=== PATIENT | male | born 1955 | race Caucasian/White ===

== ENCOUNTER 2016-11-09 10:36 | Observation (INO) ==
[2016-11-09] MEDS ORDERED: NS 1,000 ML IV ONE (11:08)
[2016-11-09] MEDS ORDERED: ZOFRAN IV ONE (11:12)
[2016-11-09] MEDS ORDERED: FLEXERIL PO ONE (11:12)
[2016-11-09] MEDS ORDERED: MORPHINE IV ONE (11:12)
--- NOTE | 2016-11-09 12:22 | Diag Imaging Result Doc PS360 ---
EXAM: RIGHT KNEE COMPLETE, THREE VIEWS HISTORY: Pain and swelling after falling TECHNIQUE: COMPARISON: None. FINDINGS: There is a comminuted fracture with multiple fracture lines through the proximal tibia. The lateral tibial plateau is depressed at least a centimeter from its normal location. There are fragments lateral to the lateral tibial plateau from the proximal fibula. This is displaced over a centimeter. No fracture to the distal femur. IMPRESSION: Comminuted compressed fracture to the proximal lateral tibia with a fracture to the fibula as well. Electronically signed by Yohannes Muñoz 11/09/2016 12:19 PM
--- NOTE | 2016-11-09 12:23 | Diag Imaging Result Doc PS360 ---
EXAM: LOWER LEG-RIGHT HISTORY: injury to rt lower leg TECHNIQUE: Three views COMPARISON: None. FINDINGS: Comminuted fracture to the proximal tibia is again demonstrated. This involves the lateral tibial plateau with compression and lateral displacement. The proximal fibula is also fractured and displaced. No fracture to the mid and distal tibia and fibula. IMPRESSION: Fractures to the proximal tibia and fibula. Electronically signed by Yohannes Muñoz 11/09/2016 12:20 PM
[2016-11-09 12:24] LABS: INR 1.37; PROTIME 14.7 Seconds (9.2-11.7); PTT 29.9 Seconds (22.0-36.0)
--- NOTE | 2016-11-09 12:25 | Diag Imaging Result Doc PS360 ---
HEAD/C-SPINE W/O CONTRAST - 11/09/2016 INDICATION: fall on coumadin TECHNIQUE: A CT dose reduction protocol was used. COMPARISON: 12/20/2015 FINDINGS: Head CT: The ventricles and sulci are normal in size and contour. No intracranial mass or hemorrhage. There is some stable minimal periventricular white matter chronic microvascular disease. No skull fractures visible. There is some frothy fluid in both maxillary sinuses. Cervical spine: Alignment is anatomic. Vertebral body heights and intervertebral disc spaces are preserved. There are some mild multilevel degenerative osteophytes globally throughout the cervical spine. No fracture or subluxation. No central canal or neural foraminal stenosis. There is COPD in the lung apices. IMPRESSION: 1. Frothy fluid in the maxillary sinuses. Otherwise no acute injury to the head. 2. Mild cervical spondylosis but no acute injury. Electronically signed by Med Melendrez 11/09/2016 12:23 PM
--- NOTE | 2016-11-09 14:06 | PROVIDER DOCUMENTATION ---
This chart was entered by Manny Yun Scribe, acting as scribe for Ruma Alberto MD. HPI-Musculoskeletal Pain/Inj - GENERAL Chief Complaint: Extremity Injury Stated Complaint: RT LEG INJURY Time Seen by Provider: 11/09/16 11:06 Source: patient Unable to obtain history due to:: urgency - HX OF PRESENT ILLNESS-MUSKULOSKELTAL Nature of Presenting Problem: Patient is a 61 y/o M that present to the ER with right lower leg injury. patient was at home in his shed when he was looking for something to help with pump spraying his yard. He was balancing on the leg of the couch when his leg slipped and fell between couch and boxes. He was unable to get up and bare weight due to pain. Patient reports hitting his head but didn't have loc. He is on coumadin due to previous blood clots. Denies neck or back pain Quality of Pain: reports: dull, throbbing Severity in ED: moderate, severe Onset/Duration: abrupt, just prior to arrival Timing: still present, constant Modifying Factors: worse with: movement, palpation Locality of Occurance: Home Similar Symptoms Previously?: No Recently seen or treated by another doctor?: No - FALL INJURY Location of Pain/Injury: reports: head, lower extremity (right lower leg proximal to knee) Reason for Fall: reports: lost balance Symptoms prior to fall:: reports: none Loss of Consciousness: no loss of consciousness Injury Associated Symptoms: reports: joint pain, snap/crack/pop sensation, unable to bear weight. denies: back/neck pain, chest pain, dizziness, headaches , puncture wound Review of Systems - Adult - REVIEW OF SYSTEMS - ADULT Constitutional: denies: chills, fever Eyes: denies: decreased vision, blurred vision, double vision Ears, Nose, Mouth & Throat: denies: ear discharge, epistaxis, mouth/dental pain , mouth swelling Cardiovascular: denies: chest pain, orthopnea, palpitations Respiratory: denies: hemoptysis, shortness of breath Gastrointestinal: denies: abdominal pain, nausea, vomiting Genitourinary: reports: no symptoms reported Musculoskeletal: reports: bone pain, joint pain. denies: back pain, neck pain Integumentary: reports: no symptoms reported Neurological: denies: dizziness/vertigo, headache/migraines, syncope Psychiatric: reports: no symptoms reported Endocrine: reports: no symptoms reported Hematologic/Lymphatic: reports: no symptoms reported Allergic/Immunologic: reports: no symptoms reported All Other Systems: Reviewed and Negative Past History - Adult - PAST MEDICAL HISTORY-ADULT Review of Records: reports: Old Records Reviewed, Nursing Assessment Review, Medications Reviewed Cardiovascular: reports: blood clots, CAD, HTN, hyperlipidemia, [place] Respiratory: reports: asthma, COPD Gastrointestinal: reports: GERD Neurological: reports: TIA Psychiatric: reports: anxiety, depression - PRIOR SURGERIES/PROCEDURES Surgical/Procedure History: reports: CABG, joint replacement (right hip), back/ neck, other (aortic stent, aortic aneursym repair) - IMMUNIZATION STATUS Childhood Immunizations: See Nurse Assessment Flu Vaccine: See Nurse Assessment - FAMILY HISTORY Family History: reviewed, not pertinent - SOCIAL HISTORY Smoking: cigarettes, less than 1 pack/day Alcohol Use Frequency: never Living Situation: family Physical Exam-Injury Related - Physical Exam-Injury Related Initial Vital Signs Reviewed: Yes General Appearance: alert, moderate distress Eyes: PERRL/EOMI, pink conjunctivae Head, Ears, Nose, Mouth & Throat: normocephalic/atraumatic, moist mucous membranes, normal ENT inspection Neck: non-tender, full range of motion, normal inspection. negative: decresed ROM, tender lateral, tender midline, vertebral point tenderness Respiratory: chest non-tender, lungs clear, normal breath sounds, no respiratory distress, no accessory muscle use Cardiovascular: regular rate, rhythm, no edema Abdominal Exam: normal bowel sounds, non tender, soft Back Exam: normal inspection, no CVA tenderness, no vertebral tenderness Extremity: pelvis stable, deformity (right lower leg proximal to knee, possible patella dislocation), swelling, other (decreased ROM) Integumentary: normal color, warm/dry Neurologic: forensics analyst II-XII nml as tested, no motor/sensory deficits Psych/Mental Status: normal mood/affect, normal thought content, normal thought process, oriented x 3 Progress - PLAN OF CARE/RESULTS Progress/Plan/Lab Results: Vital Signs - 8 hr 11/09/16 10:49 11/09/16 12:30 11/09/16 13:17 Temperature 97.6 F Pulse Rate 67 65 Respiratory Rate 16 10 L Blood Pressure 88/57 104/65 170/81 O2 Sat by Pulse Oximetry 100 Laboratory Results - last 24 hr 11/09/16 11:05 PT 14.7 H INR 1.37 PTT (Actin FS) 29.9 Orders Category Date Time Status EXTREM LOWER W/O CONTRAST [CT] Stat Exams 11/09/16 12:20 Ordered HEAD/C-SPINE W/O CONTRAST [CT] Stat Exams 11/09/16 11:15 Completed KNEE 3 VIEWS RIGHT [RAD] Stat Exams 11/09/16 11:12 Completed LOWER LEG-RIGHT [RAD] Stat Exams 11/09/16 10:52 Completed PROTIME WITH INR [COAG] Stat Lab 11/09/16 11:05 Completed PTT [COAG] Stat Lab 11/09/16 11:05 Completed 0.9% Sodium Chloride Inj [Ns] 1,000 ml Med 11/09/16 11:08 Discontinued IV 999 mls/hr Cyclobenzaprine [Flexeril] Med 11/09/16 11:12 Discontinued 10 mg PO NOW ONE Morphine Med 11/09/16 11:12 Discontinued 4 mg IV NOW ONE Ondansetron [Zofran] Med 11/09/16 11:12 Discontinued 4 mg IV NOW ONE Transfer/Admit Order [TRANSFER] Routine Transfer 11/09/16 12:55 Ordered saw patient immediately due to patient's BP being 88/57 and deformity of right lower leg 1237- and will be contacted for admission Vital Signs Temp Pulse Resp BP Pulse Ox 11/09/16 13:17 65 10 L 170/81 11/09/16 12:30 104/65 11/09/16 10:49 97.6 F 67 16 88/57 100 cephalexin monohydrate * [From Keflex] Allergy (Verified 11/09/16 11:56) NAUSEA oxycodone [Oxycodone] Allergy (Verified 11/09/16 11:56) SHORTNESS OF BREATH Aspirin EC 81 mg PO QHS 12/20/15 Buspirone HCl 5 mg PO BID 12/20/15 Calcitonin,[place],Synthetic [Calcitonin-Ch[place]mark] 200 unit NS DIRECTED Citalopram Hydrobromide [Citalopram HBr] 20 mg PO QAM 12/20/15 Finasteride 5 mg PO QAM 12/20/15 Lidocaine 5% Patch [Lidoderm] 1 each TOP Q12H 12/20/15 Lisinopril 20 mg PO QAM 12/20/15 Multivitamin [Multivitamins] 1 each PO QAM 12/20/15 Nitroglycerin [Nitrostat] 0.4 mg SL DIRECTED 12/20/15 [place]avernier-3/Dha/Epa/Fish Oil [Fish Oil 1,400 mg Softgel] 1 each PO QAM 12/20/15 Pantoprazole Sodium 40 mg PO QAM 12/20/15 Pregabalin [Lyrica] 150 mg PO TID 12/20/15 Simvastatin 20 mg PO QHS 12/20/15 Testosterone Cypionate 100 mg IM DIRECTED 12/20/15 Tramadol HCl 50 - 100 mg PO TID PRN 12/20/15 Laboratory 11/09/16 11:05 PT 14.7 H INR 1.37 PTT (Actin FS) 29.9 Orders Category Date Time Status EXTREM LOWER W/O CONTRAST [CT] Stat Exams 11/09/16 12:20 Ordered HEAD/C-SPINE W/O CONTRAST [CT] Stat Exams 11/09/16 11:15 Completed KNEE 3 VIEWS RIGHT [RAD] Stat Exams 11/09/16 11:12 Completed LOWER LEG-RIGHT [RAD] Stat Exams 11/09/16 10:52 Completed PROTIME WITH INR [COAG] Stat Lab 11/09/16 11:05 Completed PTT [COAG] Stat Lab 11/09/16 11:05 Completed 0.9% Sodium Chloride Inj [Ns] 1,000 ml Med 11/09/16 11:08 Discontinued IV 999 mls/hr Cyclobenzaprine [Flexeril] Med 11/09/16 11:12 Discontinued 10 mg PO NOW ONE Morphine Med 11/09/16 11:12 Discontinued 4 mg IV NOW ONE Ondansetron [Zofran] Med 11/09/16 11:12 Discontinued 4 mg IV NOW ONE Transfer/Admit Order [TRANSFER] Routine Transfer 11/09/16 12:55 Ordered - XRAY 1 XRAY: Right XRAY Study: Tibia/Fibula Impression: Abnormal XRAY Interpretation: fx to prox tib/fib 2 XRAY: Right XRAY Study: Knee Impression: Abnormal XRAY Interpretation: comminuted compressed fx to prox lateral tib with fx to fib - CT/MRI 1 CT Study: Head Impression: Abnormal CT Results: frothy fluid in max sinuse, no acute injury, mild spondylosis no fx - CONSULTS/PCP/HOSPITALIST Notification #1 *Consult/PCP/Hospitalist*: Time Discussed: 12:41 Reason/Comments: hypotensions, fall, prox tib/fib fx Consult Disposition: Admit ( will write orders) #2 Consult: Time Discussed: 13:56 Reason/Comments: he will consult on patient upstairs Consult Disposition: Admit Departure - Departure Date of Disposition Decision: 11/09/16 Time of Disposition Decision: 12:45 DIAGNOSIS: Hypotension, Fracture of proximal end of tibia and fibula, Fall Disposition: ADMITTED INPATIENT 09 Certified Medical Emergency: Emergent Condition: Stable Referrals and Follow-Ups: Michelle Montes MD [Primary Care Provider] - - Critical Care Note This patient required my direct & personal management of CC.: Yes Total Time (mins): 60 Critical Care Statement: This patient required my direct personal management to treat or rule out processes, the absence of which, could potentiallly result in sudden, clinically significant life or limb threatening deterioration. This chart was documented by the indicated scribe, (Manny Yun, Scribe) and accurately reflects the services I performed and decisions made by me, Ruma Alberto MD, as attested by the provider's signature.
--- NOTE | 2016-11-09 14:46 | Diag Imaging Result Doc PS360 ---
EXTREM LOWER W/O CONTRAST - 11/09/2016 INDICATION: eval fracture for surgery TECHNIQUE: CT of the right knee. A CT dose reduction protocol was used. COMPARISON: X-rays from earlier today FINDINGS: There is a large right knee lipohemarthrosis. There is a severely comminuted impacted displaced fracture of the lateral tibial plateau, with a complete transverse fracture through the proximal tibia metaphysis. There is not very much depression of the lateral tibial plateau. There is comminuted fracture of the proximal fibular head. Bones are somewhat osteopenic. No left-sided fractures. IMPRESSION: Comminuted, displaced fractures of the right lateral tibial plateau and fibular head. Transverse fracture through the proximal right tibia metaphysis. Electronically signed by Med Melendrez 11/09/2016 2:44 PM
[2016-11-09] MEDS: MORPHINE IV PRN ×4 (16:13→23:04)
[2016-11-09] MEDS ORDERED: NITROGLYCERIN SL PRN (21:45)
[2016-11-09] MEDS: LIDODERM TOP SCH (22:26)
--- NOTE | 2016-11-09 22:28 | HISTORY AND PHYSICAL ---
CHIEF COMPLAINT: History of fall, sustained injury to the right leg at home. HISTORY OF PRESENT ILLNESS: He is a 61-year-old white gentleman, basically came in the emergency room with a fall. Sustained a right leg injury. After working up in the emergency room. Patient was found to have right proximal tibial plateau and fibular fracture. He has a substantial swelling of the leg and knee swelling. He was admitted to the hospital for right knee fracture, seen by Dr. Hill. He is in lot of pain. As a result, a hospital admission was warranted. PAST MEDICAL HISTORY: Chronic back pain. BPH chronic kidney disease. Creatinine 1.6. Coronary artery disease. Acid reflux disease. Hyperlipidemia. Hypertension. Hypogonadism. Osteoporosis. Tobacco abuse. 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 PAST SURGICAL HISTORY: Bypass surgery. Abdominal aortic aneurysm, stent. Multiple back surgeries. Right hip replacement. MEDICATIONS: Lidocaine patches 1 patch on the top every 12 hours, nitroglycerin as needed, testosterone 2 mL every 2 weeks, Simvastatin 20 mg daily, Celexa 20 daily, Protonix 40 daily, lisinopril 20 daily, Lyrica 150 p.o. t.i.d. BuSpar 5 mg p.o. b.i.d., tramadol 50 t.i.d., fish oil 1 tablet daily, multivitamin 1 tablet daily, Proscar 5 mg daily, calcitonin nasal spray as needed, aspirin 80 mg daily, warfarin 2 and 3 mg alternate days. ALLERGIES: Keflex. Oxycodone. SOCIAL HISTORY: Lives in [place]. Smoking. Marijuana abuse. . Living with mechanical handyman. Disabled. FAMILY HISTORY: Father of heart failure and [place] at 63, mom is 90 years old with thyroid problems. Sibling cirrhosis with a FLETCHER. REVIEW OF SYSTEMS: HEENT: No headache. No vision problem. No earache. No sore throat. Neck: No goiter. No lymphadenopathy. No bruit. Cardiopulmonary: No chest pain, shortness of breath, PND, orthopnea. GI: No nausea, vomiting, abdominal pain. : No history of hesitancy, frequency. Extremities: Right knee swelling and pain. No swelling of legs except right leg. Neurologic: No neurological symptoms. Leg weakness. HEALTH MAINTENANCE: Flu vaccine 2015, pneumococcal vaccine 2011, last rectal exam October 2015, colonoscopy [address] Leahy. PHYSICAL EXAMINATION: VITAL SIGNS: He is afebrile. Vitals are stable. 6 feet tall, 172 pounds. HEENT: Atraumatic, normocephalic. Pupils equal, react to light. NECK: Supple. No lymphadenopathy. No goiter. CHEST: Clear to auscultation. HEART: Sounds are regular. ABDOMEN: Belly is soft, nontender. Good bowel sounds. EXTREMITIES: Right knee swelled up more, as well as the calf. Some ballottement noted in the knee and right calf is swollen with ice pack. NEUROLOGIC: No obvious neurological deficits noted. LABORATORY AND IMAGING: PT 14. INR 1.37. CT head and cervical spine, cervical spondylosis. CT head is negative. Maxillary sinusitis. Comminuted compression fracture proximal lateral tibia as well as fibula. CT of lower extremities with above findings. ASSESSMENT AND PLAN: 1. 61-year-old white gentleman admitted to the hospital with a right knee fractured at the proximal tibia and fibula with subsequent swelling. Repeat the labs in the morning. Icing. Pain control with morphine and consult with Dr. Hill. 2. 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 Will discontinue. 3. Reconcile home medications. We will discuss with Dr. Hill about the plan of care. I will follow up. cc: Atul Montes MD
[2016-11-10] MEDS ORDERED: NICODERM PATCH TD ONE (00:27)
[2016-11-10] MEDS: NICODERM PATCH TD SCH ×2 (00:39→09:04)
[2016-11-10] MEDS: MORPHINE IV PRN ×11 (01:17→23:38)
[2016-11-10] MEDS: ULTRAM PO PRN ×2 (03:17→13:55)
[2016-11-10] MEDS: PRILOSEC PO SCH ×2 (05:17→07:58)
--- NOTE | 2016-11-10 06:30 | PROGRESS NOTE ---
DATE: 11/10/2016 SUBJECTIVE: The patient is lying in bed this morning. Pain is well controlled. OBJECTIVE: Right lower extremity exam, he is still able to dorsiflex and plantar flex the ankle very well. Invert and roselia the foot well also. He has good sensation to light touch to the entire foot and again 2+ DP and PT pulses. The knee is still swollen, but no skin, ulcerations or abrasions seen. ASSESSMENT: Right tibial plateau fracture. PLANS: We will get Mr. Thurman into a knee immobilizer today. Once he is discharged from the hospital, I will see him this Wednesday in the clinic and we will set everything up for more than likely next 11/19 for open reduction and internal fixation of his tibial plateau fracture. cc: MD Atul Tadeo MD
[2016-11-10 06:51] LABS: MANUAL DIFF NEEDED? NO
[2016-11-10 07:06] LABS: BASO% 0.6 % (0.0-0.8); EOS# 0.76 X1000 (0.0-0.7); EOS% 8.7 % (0.0-10.0); HEMATOCRIT 31.6 % (42.0-52.0); HEMOGLOBIN 9.9 g/dL (14.0-18.0); IMM GRAN# 0.02 X1000 (0.0-0.04); IMM GRAN% 0.2 % (0.0-0.5); LYMPH# 1.65 X1000 (1.2-3.4); MCH 26.1 PG (27-31); MCHC 31.3 g/dL (33-37); MCV 83.2 FL (81-99); MONO# 0.74 X1000 (0.11-0.59); MONO% 8.5 % (1.7-9.3); MPV 9.3 FL (7.4-10.4); PLT 176 X1000 (130-400)
[2016-11-10 07:12] LABS: AGAP 9; BUN 10 mg/dL (8-22); CHLORIDE 97 mmol/L (98-107); COSMO 269; POTASSIUM 4.3 mmol/L (3.5-5.1); SODIUM 135 mmol/L (136-145); TCO2 29 mmol/L (25-35)
[2016-11-10 07:22] LABS: INR 1.35; PROTIME 14.5 Seconds (9.2-11.7)
--- NOTE | 2016-11-10 08:36 | CONSULTATION ---
DATE OF CONSULTATION: 11/09/2016 HISTORY OF PRESENT ILLNESS: Mr. Thurman is a 61-year-old male who presented to the emergency department after he fell in his shop and injured this right knee. He presented with a lot of pain and swelling. I x-rayed him. Found to have a tibial plateau fracture, and he was admitted for pain control. Most of his pain is in the right knee. He is unable to bear weight on it. It is associated with swelling, but no numbness. He does have a history of back problems, and is currently on hydrocodone 7.5 for that. PAST MEDICAL HISTORY: Heart-related problems in the past, including coronary artery disease and hypertension. He also has chronic kidney disease and acid reflux. PAST SURGICAL HISTORY: He has had history of bypass surgery, aortic aneurysm stenting, multiple back surgeries, and a right hip replacement. MEDICATIONS: Lidocaine patches, simvastatin, testosterone, Celexa, Protonix, lisinopril, Lyrica, BuSpar, tramadol, [place] 7.5, and Coumadin. SOCIAL HISTORY: He is a smoker and uses marijuana. He is disabled. ALLERGIES: Keflex and oxycodone. FAMILY HISTORY: Positive for heart problems. REVIEW OF SYSTEMS: Positive for this right leg pain. All other systems are essentially negative. PHYSICAL EXAMINATION: General: Well-developed, well-nourished male in no acute distress. HEENT: Normocephalic, atraumatic. Lungs: Respirations are nonlabored. Cardiovascular: Regular rate. Abdomen: Nondistended. Right Lower Extremity: He has a pretty big knee effusion present, and he has some swelling to that proximal leg. He has good sensation to light touch to the entire foot. He has good dorsiflexion of his foot, good plantar flexion. He has 2+ DP and PT pulses. He can flex and extend at the ankle and at the great toe without a lot of pain, and he can also roselia and invert his foot well. Skin: No skin ulcerations or abrasions seen anywhere. IMAGING: Several views of the right knee were reviewed, which show a lateral tibial plateau fracture with some split depression and proximal fibula fracture. CT was obtained as well, which shows that that split does come out medially as well. ASSESSMENT: 1. Right tibial plateau fracture. 2. Right proximal fibula fracture. PLAN: I discussed with Mr. Thurman about his x-rays and his CT. He does have a pretty bad tibial plateau fracture that has displacement, and I would recommend surgical intervention for it. We will need to wait for his swelling to come down a pretty good bit before we proceed to the OR. We will need to discuss with his primary team about his anticoagulation, and see if we can decrease that, especially before surgery as he is on Coumadin, and he is more prone to bleeding, which would cause his leg to swell even more. He has no evidence of compartment syndrome at this point, and he is resting comfortably. He can move all of his toes and his ankle without a lot of pain, and he has no pain at all with passive range of motion of his toes of his ankle. Will watch him overnight in the hospital. More than likely, will plan on surgical intervention in about 7 to 10 days from now. Will put him in a knee immobilizer, and he will be nonweightbearing to the right lower extremity. cc: MD Atul Tadeo MD
[2016-11-10] MEDS: BUSPAR PO SCH ×2 (09:01→21:06)
[2016-11-10] MEDS: CELEXA PO SCH (09:02)
[2016-11-10] MEDS: FISH OIL CONCENTRATE PO SCH (09:03)
[2016-11-10] MEDS: FORTICAL NAS SCH (09:03)
[2016-11-10] MEDS: PRINIVIL PO SCH (09:04)
[2016-11-10] MEDS: PROSCAR PO SCH (09:04)
[2016-11-10] MEDS: LYRICA PO SCH ×3 (09:04→17:16)
[2016-11-10] MEDS: THERA M PLUS PO SCH (09:05)
[2016-11-10] MEDS: LIDODERM TOP SCH ×2 (09:06→21:06)
[2016-11-10] MEDS: NORCO-5 PO PRN ×2 (15:48→22:08)
[2016-11-10] MEDS: ZOCOR PO SCH (21:05)
[2016-11-10] MEDS: ASPIRIN EC PO SCH (21:06)
--- NOTE | 2016-11-10 21:40 | PROGRESS NOTE ---
DATE: 11/10/2016 SUBJECTIVE: The patient is here. Complains of right knee pain. Substantial swelling in the right leg. Unable to ambulate. Pain is not adequately controlled with Dilaudid, wants p.o. medicine. Patient was seen by Dr. Hill. He wants to do as an outpatient after reducing the swelling. He denies of any chest pain, shortness of breath, off Coumadin. EXAMINATION: Vital signs: Input and output are -1 L. Afebrile. Blood pressure is 136/64. HEENT: Within normal limits. Neck: Supple. No lymphadenopathy. No goiter. Chest: Clear. Heart: Sounds are regular. Abdomen: Belly is soft, nontender. Good bowel sounds. Extremities: Right knee fluctuates swelling. The whole leg is edematous. INVESTIGATIONS: CBC: White cell count 8.6, hematocrit 31, platelet 176,000. PT 14, INR 1.35. SMA7: Sodium 135, potassium 4.3, chloride 97, BUN 10, creatinine 0.2, glucose 9, proBNP 354. ASSESSMENT AND PLAN: 1. Right knee fracture, comminuted proximal tibia and fibula with substantial swelling and not able to ambulate. Personally I do not think he is able to ambulate. His has been sick with dialysis. He does not have anybody. We will stop the Coumadin, reduce the swelling here. We will discuss with Dr. Hill. I did talk to Dr. Santiago who is accreditation specialist. He is going to discuss with Dr. Hill about possible surgery by end of this week so that he can go for rehab. 2. For pain control, added on [place] and he has been placed on knee immobilizer and we will keep him out of the bed. We will see how he is going to progress and we will make the arrangements with the patient conflicts as well as with Dr. Hill's plan of care. LEVEL OF DOCUMENTATION: 25 minutes. cc: Atul Montes MD
[2016-11-11] MEDS: MORPHINE IV PRN ×9 (01:39→22:39)
[2016-11-11] MEDS: NORCO-5 PO PRN ×3 (04:27→13:19)
[2016-11-11] MEDS: PRILOSEC PO SCH (06:10)
--- NOTE | 2016-11-11 08:19 | PROGRESS NOTE ---
DATE: 11/11/2016 SUBJECTIVE: Mr. Thurman is lying in bed this morning still complaining of some pain in the right lower extremity. He has got his knee immobilizer on. OBJECTIVE: Right lower extremity exam: Still a lot of swelling to the knee and upper leg, but he still has good sensation to light touch to all the toes. He has palpable PT and DP pulses. He can plantar flex and dorsiflex the ankle without a lot of pain, and he can invert and roselia the foot without a lot of pain. No skin ulcerations or abrasions seen throughout the right lower extremity. ASSESSMENT: Right tibial plateau fracture. PLAN: Mr. Thurman will continue to be nonweightbearing right lower extremity. We are going to wait about another week to allow a lot of the swelling and soft tissue calm down before we proceed with surgical intervention. He would need open reduction, internal fixation of this tibial plateau fracture. From an orthopedic standpoint, I would be okay with him going home. I would just need to see him in my office this next Wednesday or Wednesday before surgery to get everything scheduled and to take a look at his swelling. I am going to write for him a wheelchair and a bedside toilet to help with him as he transitions back over to home. cc: MD Atul Tadeo MD
[2016-11-11] MEDS: NICODERM PATCH TD SCH (08:43)
[2016-11-11] MEDS: LIDODERM TOP SCH ×2 (08:43→08:46)
[2016-11-11] MEDS: BUSPAR PO SCH ×2 (08:44→20:35)
[2016-11-11] MEDS: THERA M PLUS PO SCH (08:44)
[2016-11-11] MEDS: CELEXA PO SCH (08:44)
[2016-11-11] MEDS: LYRICA PO SCH ×3 (08:44→18:24)
[2016-11-11] MEDS: FORTICAL NAS SCH (08:46)
[2016-11-11] MEDS: PROSCAR PO SCH (08:46)
[2016-11-11] MEDS: PRINIVIL PO SCH (08:46)
[2016-11-11] MEDS: FISH OIL CONCENTRATE PO SCH (08:46)
--- NOTE | 2016-11-11 20:08 | PROGRESS NOTE ---
DATE: 11/11/2016 SUBJECTIVE: The complains of pain on the right knee and Dr. Hill wants to reduce the swelling and set up outpatient surgery next week. Patient not able to ambulate. REVIEW OF SYSTEMS: None reported. PHYSICAL EXAMINATION: Afebrile, stable on room air 94%.HEENT: Within normal limits. Neck: Supple. No lymphadenopathy. No goiter. Chest: Clear. Heart: Sounds are regular. Abdomen: Belly is soft, nontender. Good bowel sounds. Right extremity: Right knee has knee immobilizer with a lot of swelling. INVESTIGATIONS: None reported. ASSESSMENT AND PLAN: 1. Right knee tibial plateau fracture with a lot of soft tissue swelling. Continue on knee immobilizer. Discontinue Coumadin. He lives by himself. We will continue aggressive physical therapy. Increase the [place] q.4 hours as needed. 2. Continue present medical therapy. He is able to ambulate in and out of the bed and go to the bathroom. He will be discharged with outpatient home health care and then follow up as an outpatient. LEVEL OF DOCUMENTATION: 15 minutes. cc: Atul Montes MD
[2016-11-11] MEDS: ZOCOR PO SCH (20:35)
[2016-11-11] MEDS: ASPIRIN EC PO SCH (20:35)
[2016-11-12] MEDS: NORCO-5 PO PRN ×2 (01:11→08:17)
[2016-11-12] MEDS: MORPHINE IV PRN ×2 (05:58→08:17)
[2016-11-12] MEDS: PRILOSEC PO SCH (06:00)
[2016-11-12] MEDS: BUSPAR PO SCH ×2 (08:13→20:37)
[2016-11-12] MEDS: THERA M PLUS PO SCH (08:14)
[2016-11-12] MEDS: PRINIVIL PO SCH (08:14)
[2016-11-12] MEDS: LYRICA PO SCH ×3 (08:15→16:48)
[2016-11-12] MEDS: CELEXA PO SCH (08:15)
[2016-11-12] MEDS: PROSCAR PO SCH (08:15)
[2016-11-12] MEDS: LIDODERM TOP SCH (08:15)
[2016-11-12] MEDS: FISH OIL CONCENTRATE PO SCH (08:15)
[2016-11-12] MEDS: NICODERM PATCH TD SCH (08:15)
[2016-11-12] MEDS: FORTICAL NAS SCH (08:16)
[2016-11-12] MEDS: NORCO-10 PO PRN ×3 (12:27→20:38)
[2016-11-12] MEDS: ZOCOR PO SCH (20:37)
[2016-11-12] MEDS: ASPIRIN EC PO SCH (20:37)
--- NOTE | 2016-11-12 21:45 | PROGRESS NOTE ---
DATE: 11/12/2016 SUBJECTIVE: Patient is in pain. Able to walk with physical therapy on knee immobilizer. Swelling has persisted. REVIEW OF SYSTEMS: No chest pain, shortness of breath. PHYSICAL EXAMINATION: Vital Signs: Stable. HEENT: Within normal limits. Neck: Supple. Chest: Clear to auscultation. Heart: Sounds are regular. Abdomen: Belly is soft, nontender. Good bowel sounds. Right leg: Swelling is slowly improving on knee immobilizer. ASSESSMENT AND PLAN: Right knee fracture, status post immobilizer. Discontinue Dilaudid. Increase Howe. Continue physical therapy. Since the patient lives by himself, I will discharge in the morning and he will go and see the Orthopedics, Dr. Hill in his office tomorrow and will make the decision about further plans next week. LEVEL OF DOCUMENTATION: 15 minutes. cc: Atul Montes MD
[2016-11-13] MEDS: NORCO-10 PO PRN ×3 (00:52→09:13)
[2016-11-13] MEDS: PRILOSEC PO SCH (06:06)
[2016-11-13 07:36] VITALS: BP 124/68
[2016-11-13] MEDS: PRINIVIL PO SCH (09:09)
[2016-11-13] MEDS: BUSPAR PO SCH (09:09)
[2016-11-13] MEDS: THERA M PLUS PO SCH (09:09)
[2016-11-13] MEDS: FISH OIL CONCENTRATE PO SCH (09:09)
[2016-11-13] MEDS: CELEXA PO SCH (09:09)
[2016-11-13] MEDS: NICODERM PATCH TD SCH (09:09)
[2016-11-13] MEDS: PROSCAR PO SCH (09:09)
[2016-11-13] MEDS: LYRICA PO SCH (09:13)
[2016-11-13] MEDS: LIDODERM TOP SCH (09:14)
[2016-11-13] MEDS: FORTICAL NAS SCH (09:14)
--- NOTE | 2016-11-14 19:32 | DISCHARGE SUMMARY ---
ADMISSION DATE: 11/09/2016 DISCHARGE DATE: 11/13/2016 DISCHARGING DIAGNOSIS: Right knee fracture at tibial plateau and the Fibula. SECONDARY DIAGNOSES: 1. Chronic back pain. 2. Benign prostatic hypertrophy. 3. Chronic kidney disease. 4. Coronary artery disease. 5. Acid reflux disease. 6. Hyperlipidemia. 7. Hypertension. 8. Hypogonadism. 9. Osteoporosis. 10. 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 CONSULT: Dr. Hill. PROCEDURES: None. BRIEF HISTORY: Please see the H and P that was done on 11/09/2016. In brief, he is a 61-year-old white gentleman, basically admitted to the hospital after a fall. Sustained injury to the right knee at home. X-rays revealed right tibial plateau fracture associated with the fibula. He has substantial swelling and he was taking Coumadin. Coumadin was stopped. The patient was given IC pain control and knee immobilizer. Dr. Hill was consulted. He wants to cool off the swelling and reevaluate it next week for surgery. However patient was nonambulatory because of excruciating pain. He was given inpatient physical therapy so that he can be able to get on his feet. Rest of the hospital course was uneventful. LABS FOLLOWS: CBC, white cell count 8.6, hematocrit 31, platelet 176,000. PT 14, INR 1.3. SMA 7: Sodium 135, potassium 4.3, chloride 97, BUN 10, creatinine 1.2. Glucose 100. ProBNP 354. DISCHARGE INSTRUCTIONS FOLLOWS: Outpatient home health therapy. Follow up with Dr. Hill. This morning, Lidoderm patches 1 tablet q.12, nitroglycerin as needed. Testosterone 12 mg every 2 weeks. Simvastatin 20 daily, Celexa 20 daily, Protonix 40 daily, lisinopril 20 daily, Lyrica 150 p.o. t.i.d. BuSpar 5 mg b.i.d.. Tramadol 50 t.i.d., finasteride 5 mg daily, calcitonin nasal spray as directed, aspirin 81 mg daily. Discontinue Coumadin. [place] 10 q.4 hours p.r.n. pain and follow up with Dr. Hill as well as my office. cc: MD Shailesh Herrera MD MTDD
== END 2016-11-13 10:51 | disposition home health service (06) ==
LOC: ED 10:36 → 3N 10:36 → OBSVTOIN 14:08 → INTOOBSV 14:08
PROVIDERS: ADMIT Internal Medicine; ATTEND Internal Medicine

== ENCOUNTER 2016-11-20 10:16 | Inpatient (IN) ==
[2016-11-20] MEDS ORDERED: PEPCID ONE (10:39)
[2016-11-20] MEDS ORDERED: REGLAN ONE (10:40)
[2016-11-20] MEDS ORDERED: LR 1,000 ML ONE (10:40)
[2016-11-20] MEDS ORDERED: CLINDAMYCIN 600 MG/NS 600 MG/50 ML IVPB ONE (10:40)
[2016-11-20] MEDS ORDERED: FENTANYL ONE (11:40)
[2016-11-20] MEDS ORDERED: DIPRIVAN 1% ONE (11:40)
[2016-11-20] MEDS ORDERED: XYLOCAINE 1% ONE (11:46)
[2016-11-20] MEDS ORDERED: MARCAINE 0.25% PF ONE (11:46)
[2016-11-20] MEDS ORDERED: TORADOL ONE (12:14)
[2016-11-20] MEDS ORDERED: DECADRON ONE (12:14)
[2016-11-20] MEDS ORDERED: OFIRMEV 1000 MG/ISOTONIC SOLN 1,000 MG/100 ML BOTTLE ONE (12:20)
[2016-11-20] MEDS ORDERED: NS 1,000 ML ONE (14:21)
[2016-11-20] MEDS ORDERED: DILAUDID ONE ×2 (14:21→14:40)
[2016-11-20] MEDS ORDERED: APRESOLINE ONE (15:01)
[2016-11-20] MEDS ORDERED: PRINIVIL PO ONE (15:30)
[2016-11-20] MEDS ORDERED: ZOFRAN IV PRN (16:30)
[2016-11-20] MEDS ORDERED: PERICOLACE PO PRN (16:30)
--- NOTE | 2016-11-20 16:33 | OPERATIVE NOTE ---
PROCEDURE DATE: 11/20/2016 PREOPERATIVE DIAGNOSES: 1. Right Schatzker V tibial plateau fracture. 2. Right proximal fibular fracture. POSTOP DIAGNOSES: 1. Right Schatzker V tibial plateau fracture. 2. Right proximal fibular fracture. PROCEDURES: 1. Right open reduction internal fixation of Schatzker V tibial plateau fracture. 2. Closed reduction, right proximal fibula fracture. SURGEON: Dr. Shailesh Hill. SHELLFISH PROCESSING MACHINE TENDER: Raina Eddy, nurse practitioner. ANESTHESIA: General, with LMA. BLOOD LOSS: About 10 mL. TOURNIQUET TIME: Less than 110 minutes. IMPLANT: Synthes lateral proximal tibial plate and screws. DISPOSITION: To PACU, hemodynamically stable. INDICATION FOR PROCEDURE: Mr. Thuramn is a 61-year-old male who presented the ER about 1-1/2 weeks ago with a tibial plateau fracture that was displaced, mainly laterally, with a little bit of a split depression, but also had the fracture line coming out medially. This was graded as a Schatzker V. Put him in a knee immobilizer. I let a lot of the swelling come down, and discussed with him about operative intervention today for ORIF. I discussed with him the procedure, risks, benefits, potential complications. He expressed understanding and wished to proceed. DESCRIPTION OF PROCEDURE: Mr. Thurman was identified in the preoperative holding area. Right leg was marked as correct surgical site. He was then wheeled to the operating room, placed supine on the operating table. All bony prominences were well padded. He was induced under general anesthesia. LMA was placed. Tourniquet placed to the right thigh. Right lower extremity was prepped with chlorhexidine and gluconate scrub and then ChloraPrep. Draped in normal sterile fashion. Surgical pause was performed. We identified the correct patient, the correct side, and the correct procedure. Preop antibiotics were given, which was IV clindamycin since he was allergic to Keflex. Esmarch was used to exsanguinate the right lower extremity, and tourniquet inflated to 300 mmHg. Total tourniquet time was about 105 minutes. I started with an anterolateral incision over the knee and proximal tibia, and dissection was carried down to the deep fascia. We stayed anterior to the tibialis anterior tendon, and then elevated it down to Gerdy's tubercle, and took off the attachment at Gerdy's tubercle so we could get to our fracture site. We split the anterior tibial fascia, exposed the tibialis anterior muscle. We tried to sweep it down in one whole sweep, right off of the anterior aspect of the fascia. At this point, we could easily identify our fracture lateral plateau. I then made an arthrotomy in the knee joint laterally underneath the lateral meniscus so that we could peer into our joint line, and actually the joint looked pretty good overall, and there was no meniscal tear either that I could see in that lateral meniscus. I placed some 0 Vicryl in that meniscus so we could pull it up and out of the way and look into the joint. We cleaned out the joint to make sure everything looked good there. I then cleaned out the fracture site, which was very gapped. After I cleaned out the fracture site with a rongeur, I was then able to use a large bony tenaculum and reduced that lateral condyle piece to the medial piece, and the medial side stayed nondisplaced. Once we had a good reduction, I pinned it into place with temporary K-wires. I then put my proximal tibial locking plate on. I secured it to the shaft with a nonlocking screw and then placed several screws right into the joint line into that medial fragment, locking screws. I also placed a kickstand screw to really try to hold up that medial piece. I then placed 2 more shaft screws after that. Fluoroscopic imaging was used throughout, which showed that we had a good reduction of our joint line, both AP and lateral views. A good position of all our hardware. I then placed a Hemovac drain deep. I then closed the meniscus down with 0 Vicryl, and closed the fascia back on itself with 0 Vicryl, 2-0 Vicryl for the subcutaneous, and sun on the skin. Adaptic, 4x4's, ABD, and soft roll posterior splint were applied. Tourniquet was let down. The patient had good capillary refill return to the toes. Adaptic, 4x4's, and soft roll were then placed. The knee immobilizer was placed. Fluoroscopic imaging also showed our fibula, we had closed reduced it, and it looked in acceptable alignment overall. After the knee immobilizer was placed, tourniquet was let down. Patient had good capillary refill return to all the toes. The patient was then awakened from general anesthesia, moved to his own bed, and taken to the PACU in stable condition. Postoperatively, the patient will be nonweightbearing, right lower extremity. He will be admitted for observation and, if he does not have a lot of output, we will pull his drain tomorrow or Wednesday. cc: Shailesh Hill MD
[2016-11-20] MEDS: MORPHINE IV PRN ×3 (16:53→22:50)
[2016-11-20] MEDS: NS 1,000 ML IV SCH (18:51)
[2016-11-20] MEDS: PERIDEX MT SCH ×2 (19:48→21:10)
[2016-11-20] MEDS: CLINDAMYCIN 300 MG in NS 50 ML IV SCH (19:48)
[2016-11-21] MEDS: MORPHINE IV PRN ×6 (01:09→21:39)
[2016-11-21] MEDS: NORCO-10 PO PRN ×4 (03:06→23:56)
[2016-11-21] MEDS: CLINDAMYCIN 300 MG in NS 50 ML IV SCH (03:08)
[2016-11-21] MEDS: LOVENOX SUBQ SCH (06:37)
[2016-11-21] MEDS: NS 1,000 ML IV SCH ×2 (06:37→20:07)
[2016-11-21] MEDS: PERIDEX MT SCH ×2 (08:53→20:59)
--- NOTE | 2016-11-21 09:42 | PROGRESS NOTE ---
DATE: 11/21/2016 SUBJECTIVE: Mr. Thurman is postop day 1 after a right tibial plateau open reduction, internal fixation. He is complaining of some pain but actually doing better than yesterday. OBJECTIVE: Right lower extremity exam: Dressing is clean, dry, and intact. Hemovac drain is in place. He has got good dorsiflexion and plantar flexion of the toes and the ankle, good sensation to the toes, a little bit of numbness to the dorsal foot, but he is moving the foot, actually, really well. ASSESSMENT: Status post open reduction, internal fixation, tibial plateau fracture. PLAN: I think Mr. Thurman is doing well. I am going to keep him for one more day for pain control, and he is going to talk to his family about getting everything set up for him to go home tomorrow. cc: Shailesh Hill MD
--- NOTE | 2016-11-21 15:45 | Diag Imaging Result Doc PS360 ---
EXAM: XRAY HIP UNILATERAL RT HISTORY: hip pain TECHNIQUE: Right hip two views portable at 1540 COMMENT: There is a hip prosthesis. There is appropriate alignment. No evidence of acute fracture or dislocation is present. IMPRESSION: No evidence of acute disease. Electronically signed by Wenceslao Mas 11/21/2016 3:43 PM
[2016-11-21] MEDS ORDERED: SODIUM CHLORIDE 0.9% INJ PRN (19:45)
[2016-11-21] MEDS ORDERED: PHENERGAN PO PRN (19:45)
[2016-11-21] MEDS: PHENERGAN IV PRN (20:07)
[2016-11-22] MEDS: MORPHINE IV PRN ×2 (01:32→03:42)
[2016-11-22] MEDS: PHENERGAN IV PRN (03:42)
[2016-11-22] MEDS: NORCO-10 PO PRN ×3 (06:37→13:28)
[2016-11-22] MEDS: LOVENOX SUBQ SCH (06:59)
--- NOTE | 2016-11-22 09:02 | PROGRESS NOTE ---
DATE: 11/22/2016 SUBJECTIVE: Mr. Thurman was lying in bed this morning. Pain is a lot better controlled. He is ready go home. OBJECTIVE: On right lower extremity exam, dressing is clean, dry, and intact. I did remove the dressing enough to reveal the Hemovac drain which was sewn in. I removed the suture and then pulled the drain. The patient tolerated the procedure well. He was able to move his toes well. He has good sensation to light touch to the toes and good dorsiflexion and plantarflexion of the ankle. ASSESSMENT: Status post open reduction and internal fixation of right tibial plateau fracture. PLAN: I am going to discharge Mr. Thurman to home today. He is nonweightbearing to the right lower extremity. I will see him in about a week in clinic. cc: Shailesh Hill MD
[2016-11-22] MEDS: PERIDEX MT SCH (10:29)
[2016-11-22] MEDS: NS 1,000 ML IV SCH (10:30)
[2016-11-22 12:44] VITALS: BP 163/73
--- NOTE | 2016-11-22 18:25 | DISCHARGE SUMMARY ---
ADMISSION DATE: 11/20/2016 DISCHARGE DATE: 11/22/2016 DATE OF SURGERY: 11/20/2016: Right tibial plateau open reduction internal fixation. DISCHARGE MEDICATIONS: Percocet that he is already on and Lovenox. He will resume his home medicines as well. DISPOSITION: To home. HOSPITAL COURSE: Mr. Thurman is a 63-year-old male who was admitted after his open reduction internal fixation if his tibial plateau fracture on Wednesday. He has done well. Pain is well controlled at this point. He has been getting up with the nursing staff. He will be discharged home today and I will see him in 1 week in clinic. cc: Shailesh Hill MD
== END 2016-11-22 13:50 | disposition home health service (06) ==
LOC: 4N 10:16 → OR 10:16
PROVIDERS: ADMIT Orthopaedic Surgery; ATTEND Orthopaedic Surgery